=== PATIENT | male | born 1990 ===

== ENCOUNTER → 2020-12-14 08:00 | Outpatient (CLI) | payer OTHER ==
[~2020-12-14 08:00] MED LIST: NOVOLOG100 UNIT/1
== END | disposition home or self-care (01) ==
LOC: ADM 07:45 → LAB 08:00 → CIR.AMB 12-21 07:00 → EDSTATUS 12-21 07:45
PROVIDERS: ATTEND Urology
DX: N47.1 Phimosis (principal); Z03.818 Encounter for observation for suspected exposure to other biological agents ruled out